=== PATIENT | male | born 1955 | race Hispanic/Latino ===

== ENCOUNTER 2021-02-10 19:38 | Emergency (ER) | payer OTHER ==
[2021-02-10 20:31] LABS: Urine Blood Negative (Negative); Urine Glucose Negative (Negative); Urine Protein Negative (Negative); Urine Specific Gravity 1.015 (1.005-1.030)
[2021-02-10 20:58] LABS: Absolute Lymphocytes (CBC) 0.2 K/uL (0.7-4.9); Basophils % 0.2 % (0-1.3); Hematocrit 40.5 % (39.6-49.0); Lymphocytes % 3.9 % (15.3-44.8); MPV 7.1 fL (7.6-11.3); RBC Red Blood Cell Count 4.38 M/uL (4.33-5.43)
[2021-02-10] MEDS ORDERED: NA CHLORIDE 0.9% 1,000 ML ONE (21:06)
[2021-02-10 21:12] LABS: ALT/SGPT 24 U/L (12-78); AST/SGOT 17 U/L (15-37); Albumin 3.8 g/dL (3.4-5.0); Alkaline Phosphatase 45 U/L (45-117); BUN Blood Urea Nitrogen 14 mg/dL (7-18); Bicarbonate 23 mmol/L (21-32); Bilirubin Direct 0.2 mg/dL (0-0.2); Bilirubin Total 0.5 mg/dL (0.2-1.0); Glucose Level 155 mg/dL (74-106); Potassium 3.9 mmol/L (3.5-5.1); Protein, Total 7.1 g/dL (6.4-8.2); Sodium Level 134 mmol/L (136-145)
--- NOTE | 2021-02-10 21:20 | RAD REPORT ---
EXAM DESCRIPTION: RAD - Chest Single View - 02/10/2021 9:11 pm CLINICAL HISTORY: FEVER COMPARISON: Portable October 2014 TECHNIQUE: AP portable chest image was obtained 02/10/2021 9:11 pm . FINDINGS: Lungs are clear. Heart and vasculature are normal. No measurable pleural effusion and no p neumothorax. No acute bony abnormality seen. No acute aortic findings suspected. IMPRESSION: No acute cardiopulmonary process.
[2021-02-10 21:21] LABS: Protime INR 1.09
[2021-02-10] MEDS ORDERED: ACETAMINOPHEN 500 MG TAB ONE (23:12)
[2021-02-10 23:21] LABS: Blood Morphology Comment NOT SEEN (NOT SEEN); Platelet Estimate ADEQ
[2021-02-10 23:28] LABS: NT PRO-BNP 514 pg/mL (<125); Troponin (Emerg Dept Use Only) < 0.02 ng/mL (0.0-0.045)
[2021-02-10] MEDS ORDERED: CEFTRIAXONE/SWI 1gm 1 GM/10 ML SYR ONE (23:38)
--- NOTE | 2021-02-11 00:59 | EDPHYS ---
Physician Documentation [facility] Name: Ramirez Dickinson Age: 65 yrs Sex: Male : 1955 Arrival Date: 02/10/2021 Time: 19:50 Bed 25 Private MD: ED Physician Asa Olivarez HPI: 02/10 20:58 This 65 yrs old Male presents to ER via Ambulatory with complaints of Fever. mh7 20:58 The patient reports fever, that was measured at 103 degrees Fahrenheit. Onset: The mh7 symptoms/episode began/occurred this morning, today. Modifying factors: there are no obvious modifying factors. Associated signs and symptoms: Pertinent positives: chills, headache, myalgias, shortness of breath, dysuria, Pertinent negatives: abdominal pain, altered mental status, arthralgias, backache, chest pain, cough, diarrhea, pulling at ears, earache, hemoptysis, nausea, night sweats, runny nose, sinus congestion, sinus drainage, skin rash, sore throat, swelling, vomiting. Severity of symptoms: At their worst the symptoms were moderate today, in the emergency department the symptoms have improved moderately. Historical: - Allergies: 19:55 No Known Allergies; ca1 - PMHx: 19:55 Hypertension; High Cholesterol; Diabetes - NIDDM; ca1 - PSHx: 19:55 nose surgery; ca1 - Immunization history:: Client reports receiving the 1st dose of the Covid vaccine, Kam and Kam Pneumococcal vaccine is up to date, Flu vaccine is up to date. - Social history:: Smoking status: Patient/guardian denies using tobacco, the patient reports quitting approximately 14 years ago. ROS: 20:58 Eyes: Negative for injury, pain, redness, and discharge, ENT: Negative for injury, mh7 pain, and discharge, Neck: Negative for injury, pain, and swelling, Cardiovascular: Negative for chest pain, palpitations, and edema, Abdomen/GI: Negative for abdominal pain, nausea, vomiting, diarrhea, and constipation, Back: Negative for injury and pain, MS/Extremity: Negative for injury and deformity, Skin: Negative for injury, rash, and discoloration, Neuro: Negative for headache, weakness, numbness, tingling, and seizure, Psych: Negative for depression, anxiety, suicide ideation, homicidal ideation, and hallucinations, Allergy/Immunology: Negative for hives, rash, and allergies, Endocrine: Negative for neck swelling, polydipsia, polyuria, polyphagia, and marked weight changes, Hematologic/Lymphatic: Negative for swollen nodes, abnormal bleeding, and unusual bruising. Exam: 20:58 Constitutional: This is a well developed, well nourished patient who is awake, alert, mh7 and in no acute distress. Head/Face: Normocephalic, atraumatic. Eyes: Pupils equal round and reactive to light, extra-ocular motions intact. Lids and lashes normal. Conjunctiva and sclera are non-icteric and not injected. Cornea within normal limits. Periorbital areas with no swelling, redness, or edema. ENT: Nares patent. No nasal discharge, no septal abnormalities noted. Tympanic membranes are normal and external auditory canals are clear. Oropharynx with no redness, swelling, or masses, exudates, or evidence of obstruction, uvula midline. Mucous membranes moist. Neck: Trachea midline, no thyromegaly or masses palpated, and no cervical lymphadenopathy. Supple, full range of motion without nuchal rigidity, or vertebral point tenderness. No Meningismus. Chest/axilla: Normal chest wall appearance and motion. Nontender with no deformity. No lesions are appreciated. Cardiovascular: Regular rate and rhythm with a normal S1 and S2. No gallops, murmurs, or rubs. Normal PMI, no JVD. No pulse deficits. Respiratory: Lungs have equal breath sounds bilaterally, clear to auscultation and percussion. No rales, rhonchi or wheezes noted. No increased work of breathing, no retractions or nasal flaring. Abdomen/GI: Soft, non-tender, with normal bowel sounds. No distension or tympany. No guarding or rebound. No evidence of tenderness throughout. Back: No spinal tenderness. No costovertebral tenderness. Full range of motion. Skin: Warm, dry with normal turgor. Normal color with no rashes, no lesions, and no evidence of cellulitis. MS/ Extremity: Pulses equal, no cyanosis. Neurovascular intact. Full, normal range of motion. Neuro: Awake and alert, GCS 15, oriented to person, place, time, and situation. Cranial nerves II-XII grossly intact. Motor strength 5/5 in all extremities. Sensory grossly intact. Cerebellar exam normal. Normal gait. Psych: Awake, alert, with orientation to person, place and time. Behavior, mood, and affect are within normal limits. Vital Signs: 19:50 BP 146 / 90; Pulse 107; Resp 18; Temp 99.9(O); Pulse Ox 98% on R/A; Weight 90.72 kg ca1 (R); Height 5 ft. 11 in. (180.34 cm) (R); Pain 0/10; 20:04 BP 137 / 81; Pulse 99; Resp 18; Temp 99.9(O); Pulse Ox 99% on R/A; Weight 90.72 kg; ld1 Height 5 ft. 11 in. (180.34 cm); Pain 0/10; 21:00 BP 140 / 75; Pulse 75; Resp 18; Pulse Ox 98% on R/A; ld1 21:30 BP 135 / 66; Pulse 71; Resp 18; Pulse Ox 98% on R/A; ld1 22:00 BP 136 / 78; Pulse 74; Resp 18; Pulse Ox 98% on R/A; ld1 23:52 BP 127 / 65; Pulse 94; Resp 18; Pulse Ox 95% on R/A; ld1 02/11 01:17 BP 121 / 74; Pulse 85; Resp 16 S; Temp 99.2(O); Pulse Ox 96% on R/A; bb 02/10 20:04 Body Mass Index 27.89 (90.72 kg, 180.34 cm) ld1 MDM: 00:56 Differential diagnosis: viral Infection, bacterial infection, URI, UTI. Data reviewed: [facility] vital signs, nurses notes, lab test result(s), cardiac enzymes, CBC, electrolytes, urinalysis, EKG, radiologic studies, CT scan, plain films. Data interpreted: Pulse oximetry: on room air is 95 %. Interpretation: normal. Counseling: I had a detailed discussion with the patient and/or guardian regarding: the historical points, exam findings, and any diagnostic results supporting the discharge/admit diagnosis, lab results, radiology results. Response to treatment: the patient's symptoms have resolved after treatment, the patient's blood pressure is in an acceptable range, mental status has returned to baseline, the patient no longer shows bradycardia, the patient is not short of breath, the patient is not tachycardic, the patient's pain is gone, the patient's temperature has normalized. Refusal of service: The patient/guardian displays adequate decision making capability and despite a detailed discussion of alternatives, benefits, risks, and consequences refuses: Admission to the hospital for further work-up and treatment. 00:58 Patient medically screened. [facility] 02/10 20:26 Order name: CBC with Diff [facility] 02/10 20:26 Order name: Basic Metabolic Panel [facility] 02/10 20:26 Order name: Protime (+inr) [facility] 02/10 20:26 Order name: Ptt, Activated [facility] 02/10 20:26 Order name: LFT's [facility] 02/10 20:27 Order name: Blood Culture Adult (2) [facility] 02/10 20:27 Order name: Influenza Screen (a \\T\\ B) [facility] 02/10 20:27 Order name: COVID-19 : Document "Date of Symptom Onset" if Symptomatic. [facility] 02/10 20:27 Order name: Urine Culture [facility] 02/10 20:27 Order name: Rapid Strep [facility] 02/10 20:31 Order name: Urine Dipstick-Ancillary; Complete Time: 22:23 [facility] 02/10 21:12 Order name: Basic Metabolic Panel; Complete Time: 23:34 [facility] 02/10 21:12 Order name: Liver (Hepatic) Function; Complete Time: 23:34 [facility] 02/10 21:23 Order name: CORONAVIRUS [facility] 02/10 20:27 Order name: Chest Single View XRAY [facility] 02/10 21:20 Order name: RAD; Complete Time: 22:23 [facility] 02/10 21:25 Order name: Protime (+INR); Complete Time: 22:23 [facility] 02/10 21:25 Order name: PTT, Activated Partial Thromb; Complete Time: 22:23 [facility] 02/10 21:26 Order name: CBC with Automated Diff; Complete Time: 23:34 [facility] 02/10 21:43 Order name: Group A Streptococcus Rapid Sc; Complete Time: 22:23 [facility] 02/10 21:50 Order name: Influenza Screen (A ; Complete Time: 22:23 [facility] 02/10 22:26 Order name: SARS-COV-2 RT PCR; Complete Time: 22:49 [facility] 02/10 22:58 Order name: CT Abd/Pelvis - IV Contrast Only [facility] 02/10 22:59 Order name: Troponin (emerg Dept Use Only) [facility] 02/10 22:59 Order name: PROBNP [facility] 02/10 23:21 Order name: Manual Differential; Complete Time: 23:34 [facility] 02/10 23:29 Order name: Troponin (Emerg Dept Use Only); Complete Time: 23:34 [facility] 02/10 23:29 Order name: NT PRO-BNP; Complete Time: 23:34 [facility] 02/10 23:35 Order name: Lactate [facility] 02/11 00:13 Order name: Lactate; Complete Time: 00:49 [facility] 02/10 20:26 Order name: Urine Dipstick-Ancillary (obtain specimen); Complete Time: 20:30 [facility] 02/10 20:27 Order name: Saline Lock; Complete Time: 20:44 [facility] 02/10 22:58 Order name: CT Chest For PE Angio [facility] 02/10 22:59 Order name: EKG - Nurse/Tech; Complete Time: 23:16 [facility] Administered Medications: 02/10 20:47 Drug: NS 0.9% 1000 ml Route: IV; Rate: 1000 ml; Site: left antecubital; ld1 21:50 Follow up: Response: No adverse reaction; IV Status: Completed infusion ld1 23:18 Drug: Rocephin (cefTRIAXone) 1 grams Route: IV; Rate: per protocol; Site: [facility]; 23:20 Follow up: Response: No adverse reaction; IV Status: Completed infusion ld1 Disposition: 02/11/21 00:58 Discharged to Home. Impression: Fever, unspecified, Dysuria. - Condition is Stable. - Discharge Instructions: Dysuria, Fever, Adult, [id number]. - Prescriptions for Keflex 500 mg Oral Capsule - take 1 capsule by ORAL route every 12 hours for 7 days; 14 capsule. Pyridium 200 mg Oral Tablet - take 1 tablet by ORAL route every 8 hours for 2 days; 6 tablet. - Medication Reconciliation Form, Thank You Letter, Antibiotic Education, Prescription Opioid Use form. - Follow up: Private Physician; When: 1 - 2 days; Reason: Worsening of condition, Recheck today's complaints, Continuance of care, Re-evaluation by your physician. - Problem is new. - Symptoms are resolved. Signatures: Dispatcher PrepChampsst Kell Borges RN RN bb Maite Mayberry RN RN ca1 Asa Olivarez MD MD 7 Floresita Mann RN RN ld1 Corrections: (The following items were deleted from the chart) 02/11 01:19 00:58 02/11/2021 00:58 Discharged to Home. Impression: Fever, unspecified; Dysuria. bb Condition is Stable. Forms are Medication Reconciliation Form, Thank You Letter, Antibiotic Education, Prescription Opioid Use. Follow up: Private Physician; When: 1 - 2 days; Reason: Worsening of condition, Recheck today's complaints, Continuance of care, Re-evaluation by your physician. Problem is new. Symptoms are resolved. mh7
--- NOTE | 2021-02-11 00:59 | ER ---
Nurse's Notes [facility] Name: Ramirez Dickinson Age: 65 yrs Sex: Male : 1955 Arrival Date: 02/10/2021 Time: 19:50 Bed 25 Private MD: Diagnosis: Fever, unspecified;Dysuria Presentation: 02/10 19:50 Chief complaint: Patient states: Fever started this morning at 0730 today. Reports SOB, ca1 headache. Denies cough and congestion. reports burning with urination, urinary urgency and frequency. Took Aleve at 1530. Coronavirus screen: Client denies travel out of the [place] in the last 14 days. chills, fever, shortness of breath, Client presents with at least one sign or symptom that may indicate coronavirus-19. Standard/surgical mask placed on the client. Provider contacted for isolation considerations. Ebola Screen: Patient negative for fever greater than or equal to 101.5 degrees Fahrenheit, and additional compatible Ebola Virus Disease symptoms Patient denies exposure to infectious person. Patient denies travel to an Ebola-affected area in the 21 days before illness onset. No symptoms or risks identified at this time. Initial Sepsis Screen: Does the patient meet any 2 criteria? No. Patient's initial sepsis screen is negative. Does the patient have a suspected source of infection? No. Patient's initial sepsis screen is negative. Risk Assessment: Do you want to hurt yourself or someone else? Patient reports no desire to harm self or others. Onset of symptoms was February 10, 2021. 19:50 Method Of Arrival: Ambulatory ca1 19:50 Acuity: ADRIAN 3 ca1 Historical: - Allergies: 19:55 No Known Allergies; ca1 - PMHx: 19:55 Hypertension; High Cholesterol; Diabetes - NIDDM; ca1 - PSHx: 19:55 nose surgery; ca1 - Immunization history:: Client reports receiving the 1st dose of the Covid vaccine, Kam and Kam Pneumococcal vaccine is up to date, Flu vaccine is up to date. - Social history:: Smoking status: Patient/guardian denies using tobacco, the patient reports quitting approximately 14 years ago. Screenin:04 Abuse screen: Denies threats or abuse. Denies injuries from another. Nutritional ld1 screening: No deficits noted. Tuberculosis screening: No symptoms or risk factors identified. Fall Risk None identified. Assessment: 20:04 General: Appears in no apparent distress. comfortable, Behavior is calm, cooperative, ld1 appropriate for age. Pain: Denies pain. Neuro: Level of Consciousness is awake, alert, obeys commands, Oriented to person, place, time, situation, Appropriate for age. Cardiovascular: Capillary refill < 3 seconds Patient's skin is warm and dry. Respiratory: Airway is patent Respiratory effort is even, unlabored, Respiratory pattern is regular, symmetrical. GI: Abdomen is flat, non-distended. : No signs and/or symptoms were reported regarding the genitourinary system. : Reports burning with urination, since X 3 days. EENT: No signs and/or symptoms were reported regarding the EENT system. Derm: No signs and/or symptoms reported regarding the dermatologic system. Musculoskeletal: No signs and/or symptoms reported regarding the musculoskeletal system. 21:00 Reassessment: Patient appears in no apparent distress at this time. No changes from ld1 previously documented assessment. Patient and/or family updated on plan of care and expected duration. Pain level reassessed. 22:10 Reassessment: Patient appears in no apparent distress at this time. Patient in bed with ld1 daughter at bedside, waiting on results. 23:52 Reassessment: Patient appears in no apparent distress at this time. Patient and/or ld1 family updated on plan of care and expected duration. Pain level reassessed. Patient denies pain at this time. 02/11 00:26 Reassessment: Patient is alert, oriented x 3, equal unlabored respirations, skin bb warm/dry/pink. pt resting quietly, family at bedside awaiting results of diagnostic exams. 01:18 Reassessment: Patient is alert, oriented x 3, equal unlabored respirations, skin bb warm/dry/pink. pt verbalized understanding of and agrees to plan of care discharge instructions given pt ambulated with steady gait to exit accompanied by family. Vital Signs: 02/10 19:50 BP 146 / 90; Pulse 107; Resp 18; Temp 99.9(O); Pulse Ox 98% on R/A; Weight 90.72 kg ca1 (R); Height 5 ft. 11 in. (180.34 cm) (R); Pain 0/10; 20:04 BP 137 / 81; Pulse 99; Resp 18; Temp 99.9(O); Pulse Ox 99% on R/A; Weight 90.72 kg; ld1 Height 5 ft. 11 in. (180.34 cm); Pain 0/10; 21:00 BP 140 / 75; Pulse 75; Resp 18; Pulse Ox 98% on R/A; ld1 21:30 BP 135 / 66; Pulse 71; Resp 18; Pulse Ox 98% on R/A; ld1 22:00 BP 136 / 78; Pulse 74; Resp 18; Pulse Ox 98% on R/A; ld1 23:52 BP 127 / 65; Pulse 94; Resp 18; Pulse Ox 95% on R/A; ld1 02/11 01:17 BP 121 / 74; Pulse 85; Resp 16 S; Temp 99.2(O); Pulse Ox 96% on R/A; bb 02/10 20:04 Body Mass Index 27.89 (90.72 kg, 180.34 cm) ld1 ED Course: 02/10 19:50 Patient arrived in ED. ca1 19:53 Triage completed. ca1 19:55 Arm band placed on right wrist. ca1 19:57 Asa Olivarez MD is Attending Physician. mh7 19:58 Floresita Mann RN is Primary Nurse. ld1 20:04 Patient has correct armband on for positive identification. Bed in low position. Call ld1 light in reach. Side rails up X2. Pulse ox on. NIBP on. 20:36 COVID-19 : Document "Date of Symptom Onset" if Symptomatic. Sent. ca1 20:36 Influenza Screen (a \\T\\ B) Sent. ca1 20:36 Blood Culture Adult (2) Sent. ca1 20:40 Inserted saline lock: 20 gauge in left antecubital area, using aseptic technique. Blood ld1 collected. 20:44 Urine Culture Sent. ld1 22:14 Rapid Strep Sent. ld1 23:52 Lactate Sent. ld1 02/11 01:17 IV discontinued, intact, bleeding controlled, No redness/swelling at site. Pressure bb dressing applied. 01:18 No provider procedures requiring assistance completed. bb Administered Medications: 02/10 20:47 Drug: NS 0.9% 1000 ml Route: IV; Rate: 1000 ml; Site: left antecubital; ld1 21:50 Follow up: Response: No adverse reaction; IV Status: Completed infusion ld1 23:18 Drug: Rocephin (cefTRIAXone) 1 grams Route: IV; Rate: per protocol; Site: left ld1 antecubital; 23:20 Follow up: Response: No adverse reaction; IV Status: Completed infusion ld1 Outcome: 02/11 00:58 Discharge ordered by MD. knight 01:18 Discharged to home ambulatory, with family. bb 01:18 Condition: stable 01:18 Discharge instructions given to patient, family, Instructed on discharge instructions, follow up and referral plans. medication usage, Demonstrated understanding of instructions, follow-up care, medications, Prescriptions given X 2. 01:19 Patient left the ED. bb Signatures: Kell Shah RN RN bb Maite Mayberry RN RN ca1 Asa Olivarez MD MD [facility] Floresita Mann RN RN ld1 Corrections: (The following items were deleted from the chart) 02/10 19:53 19:50 Chief complaint: Patient states: Fever started this morning at 0730 today. ca1 Reports SOB, headache. Denies cough and congestion. reports burning with urination, urinary urgency and frequency ca1
[2021-02-11 01:36] VITALS: BP 121/74; TEMP 99.2; O2SAT 96
--- NOTE | 2021-02-11 14:35 | RAD REPORT ---
EXAM DESCRIPTION: Abdomen Pelvis W Contrast (accession [id number]), Chest For Pe Angio (accession [id number] ) CLINICAL HISTORY: 65 years Male Fever;Flank pain and shortness of breath. COMPARISON: None. TECHNIQUE: Contiguous axial images obtained through the chest during the infusion of IV contrast and through the abdomen and pelvis following IV contrast. Reformatted images obtained. MIP reformatted images obtained through the chest. This exam was performed according to our department optimization program which includes automated exp osure control, adjustment of the mA and/or kv according to patient size and/or use of iterative recon struction technique. FINDINGS: The images through the chest are suboptimal from motion. The mediastinum appears unremarkable. Coronary artery calcifications. Atherosclerotic changes in the thoracic aorta. The ascending aorta is mildly prominent measuring 4 cm in diameter. 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 The aorta measures 3.6 cm in diameter in the area of the saccular aneurysm. The saccu lar aneurysm measures approximately 2.2 cm at its base by 0.9 cm in height. The pulmonary artery branches are suboptimally evaluated from motion. No large central pulmonary embo meghan is identified. The peripheral branches are suboptimally evaluated. No consolidating infiltrates or pleural effusions. No pneumothorax. There is calcific pleural plaquing along the diaphragmatic surfaces greater on the right. The liver appears unremarkable. The spleen and pancreas appear unremarkable. No adrenal masses. The kidneys appear unremarkable. No hydronephrosis. There are gallstones in the gallbladder. Atherosclerotic calcifications. No aneurysmal dilatation of the abdominal aorta. There is a duodenal diverticulum. There are slightly prominent loops of small bowel in the left lower abdomen which could be from an ileus. If there is concern for bowel obstruction, follow-up is recomm ended. There is colonic diverticulosis most pronounced in the descending and sigmoid colon. The appen james appears unremarkable. No free pelvic fluid. Small fat-containing inguinal hernias. Degenerative changes in the spine. Sclerotic lesion in the right iliac bone likely a bone island. IMPRESSION: 1. The images through the chest are suboptimal from motion. No large central pulmonary embolus is identified. The peripheral branches are suboptimally evaluated from motion. 2. There is saccular aneurysmal dilatation in the proximal descending thoracic aorta with mural thr ombus. The saccular aneurysm measures approximately 2.2 cm at its base by 0.9 cm in height. 3. There are slightly prominent loops of small bowel in the left lower abdomen which could be from an ileus. If there is concern for bowel obstruction, follow-up is recommended. 4. There are gallstones in the gallbladder. If there is clinical concern for the possibility of cho lecystitis, sonography or nuclear medicine imaging could be obtained to better evaluate. 5. Other findings as above. Electronically signed by: Sabas Sanchez MD 02/11/2021 12:28 AM CDT Due to temporary technical issues with the PACS/Fluency reporting system, reports are being signed by the in house radiologists without review as a courtesy to insure prompt reporting. The interpreting radiologist is fully responsible for the content of the report.
--- NOTE | 2021-02-11 14:37 | RAD REPORT ---
EXAM DESCRIPTION: Abdomen Pelvis W Contrast (accession [id number]), Chest For Pe Angio (access ion [id number]) CLINICAL HISTORY: 65 years Male Fever;Flank pain and shortness of breath. COMPARISON: None. TECHNIQUE: Contiguous axial images obtained through the chest during the infusion of IV contrast and through the abdomen and pelvis following IV contrast. Reformatted images obtained. MIP reformatted images obtained through the chest. This exam was performed according to our department optimization program which includes automated exp osure control, adjustment of the mA and/or kv according to patient size and/or use of iterative recon struction technique. FINDINGS: The images through the chest are suboptimal from motion. The mediastinum appears unremarkable. Coronary artery calcifications. Atherosclerotic changes in the thoracic aorta. The ascending aorta is mildly prominent measuring 4 cm in diameter. 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 The aorta measures 3.6 cm in diameter in the area of the saccular aneurysm. The saccu lar aneurysm measures approximately 2.2 cm at its base by 0.9 cm in height. The pulmonary artery branches are suboptimally evaluated from motion. No large central pulmonary embo meghan is identified. The peripheral branches are suboptimally evaluated. No consolidating infiltrates or pleural effusions. No pneumothorax. There is calcific pleural plaquing along the diaphragmatic surfaces greater on the right. The liver appears unremarkable. The spleen and pancreas appear unremarkable. No adrenal masses. The kidneys appear unremarkable. No hydronephrosis. There are gallstones in the gallbladder. Atherosclerotic calcifications. No aneurysmal dilatation of the abdominal aorta. There is a duodenal diverticulum. There are slightly prominent loops of small bowel in the left lower abdomen which could be from an ileus. If there is concern for bowel obstruction, follow-up is recomm ended. There is colonic diverticulosis most pronounced in the descending and sigmoid colon. The appen james appears unremarkable. No free pelvic fluid. Small fat-containing inguinal hernias. Degenerative changes in the spine. Sclerotic lesion in the right iliac bone likely a bone island. IMPRESSION: 1. The images through the chest are suboptimal from motion. No large central pulmonary embolus is identified. The peripheral branches are suboptimally evaluated from motion. 2. There is saccular aneurysmal dilatation in the proximal descending thoracic aorta with mural thr ombus. The saccular aneurysm measures approximately 2.2 cm at its base by 0.9 cm in height. 3. There are slightly prominent loops of small bowel in the left lower abdomen which could be from an ileus. If there is concern for bowel obstruction, follow-up is recommended. 4. There are gallstones in the gallbladder. If there is clinical concern for the possibility of cho lecystitis, sonography or nuclear medicine imaging could be obtained to better evaluate. 5. Other findings as above. Electronically signed by: Sabas Sanchez MD 02/11/2021 12:28 AM CDT Due to temporary technical issues with the PACS/Fluency reporting system, reports are being signed by the in house radiologists without review as a courtesy to insure prompt reporting. The interpreting radiologist is fully responsible for the content of the report.
--- NOTE | 2021-02-12 10:36 | EKG ---
Test Date: 2021-02-10 Test Time: 23:09:33 Hogshead Cooper: CAMILA MEASUREMENT RESULTS: Intervals: Rate: 99 IN: 122 QRSD: 70 QT: 330 QTc: 423 [place]: P: 5 IN: 122 QRS: 9 T: 36 INTERPRETIVE STATEMENTS: Normal sinus rhythm Nonspecific ST and T wave abnormality Abnormal ECG Compared to ECG 11/09/2014 09:31:27 ST (T wave) deviation now present Electronically Signed On 02-12-21 10:32:15 CDT by Abraham Sarmiento
== END 2021-02-11 01:19 | disposition home or self-care (01) ==
LOC: ER 19:38
DX: R30.0 Dysuria (principal); Z20.822 Contact with and (suspected) exposure to COVID-19; I10 Essential (primary) hypertension
CPT/HCPCS: 87040 ×2; 87070; 87088; 85025; 87086; 80048; 36415; 87205 ×2; 85610; 80076; 87081; 83605; 85730; 81003; 84484; 83880; 87804 ×2; 71275; 74177; 71045; U0003; Q9967; J0696; J7030; 93005; 96361; 96374; 99284